=== PATIENT | female | born 1990 | race Caucasian/White ===

== ENCOUNTER 2023-08-19 22:29 | Emergency (ER) | payer MEDICAID ==
[~2023-08-19] VITALS: Ht 157.5 cm; Wt 100.0 kg
[~2023-08-19 22:29] MED LIST: NEOM10SO7 OT
[2023-08-19 22:45] VITALS: BP 163/94; PULSE 76; RESP 18; TEMP 97.6; O2SAT 96
== END 2023-08-20 01:20 | disposition left against medical advice (07) ==
LOC: ER 22:29
DX: R60.0 Localized edema (principal); Z53.21 Procedure and treatment not carried out due to patient leaving prior to being seen by health care provider

== ENCOUNTER 2024-09-05 00:22 | Emergency (ER) | payer MEDICAID ==
[~2024-09-05] VITALS: Ht 157.5 cm; Wt 97.7 kg
--- NOTE | 2024-09-05 01:37 | Physician Documentation ---
History of Present Illness ~ Chief Complaint: Abdominal Pain Stated Complaint: ABD PAIN Time Seen by MD: 01:36 Primary Medical Doctor: None Mode of Arrival: POV HPI Patient presents to the emergency room for what she believes in an umbilical hernia for which she noticed one year ago. She states over the past two weeks that has gotten worse. She can not remember any particular event that could have caused it to come out more. She continues to pass gas and have bowel movements regularly. She does not have a primary care provider. Medication Reconciliation Allergies: Coded Allergies: No Known Allergies (Unverified , 08/19/23) Scheduled Neomy Sulf/Polymyx B Sulf/Hc (Cortisporin Otic Solution), 2 DROP OT TID Past Medical History Past Medical History: No Pertinent History Past Surgical History: noncontributory Alcohol Use: None Lives with: Family Lives In: Home Review of Systems ROS All review of systems negative except as per HPI Physical Exam Vital Signs: Temperature: 98.4, Heart Rate: 91, Respiratory Rate: 18, BP: 122/77, Pulse Oximetry: 100, Weight: 97.700 Oxygen Flow Rate: 0 Physical Exam General: Patient is awake, alert, oriented x4 in no acute distress and well appearing sitting in bed reading Head: Normocephalic and atraumatic. Eyes: Conjunctival normal. EOMI. PERRL. ENT: Mucous membranes moist. Neck: Supple, trachea is midline. Chest: Clear to auscultation bilaterally without rales, rhonchi, or wheezes. There is no accessory muscle use or retractions. Cardiac: RRR without murmurs, gallops, or rubs. Abd: Soft, nondistended, nontender, with 2 cm x 2 cm umbilical hernia Progress Results/Orders Results/Orders Vital Signs 09/05/24 09/05/24 09/05/24 00:36 00:57 00:59 Temp 98.4 Pulse 103 91 Resp 16 17 18 B/P (MAP) 124/83 122/77 (92) Pulse Ox 97 100 O2 Flow Rate 0 Medical Decision Making Findings Patient presents to the emergency room with chief complaint of umbilical hernia. Differentials include but are not limited to umbilical hernia, abscess, foreign body, cancer. Patient continues to have normal bowel movements and he had not feel she is in danger of intestinal incarceration at this time and history is inconsistent with bowel obstruction. Given risks versus benefits I feel radiation exposure risks outweigh the benefits at this time.. We will refer her to our surgeon for definitive management. ER precautions discussed. Departure Disposition: HOME / SELF CARE / HOMELESS Impression: Primary Impression: Umbilical hernia Condition: Stable Discharge Instructions: Umbilical Hernia, Adult Additional Instructions: Call surgeon's office tomorrow to arrange for follow up as you can expect your hernia to worsened. Return for sudden worsening of symptoms Referrals: NO PRIMARY CARE PROVIDER (PCP) MITUL HATHAWAY MD Education Educated: Patient Educated regarding: diagnosis, need for follow up Signature Scribe Signature: No scribe Attestation: The note accurately reflects work and decisions made by me.Thad Dickey MD 09/05/24 01:49 THAD DICKEY MD Sep 05, 2024 01:37
[2024-09-05 02:00] VITALS: BP 120/81; PULSE 89; RESP 15; TEMP 98.4; O2SAT 99
== END 2024-09-05 02:01 | disposition home or self-care (01) ==
LOC: ER 00:22
DX: K42.9 Umbilical hernia without obstruction or gangrene (principal); Z79.899 Other long term (current) drug therapy
CPT/HCPCS: 99281; 99282